=== PATIENT | female | born 1970 | race Caucasian/White ===

== ENCOUNTER 2017-08-23 19:43 | Emergency (ER) | payer OTHER ==
[~2017-08-23 19:43] MED LIST: ADVAI100I PO; DIAZ5 PO; MELO15 PO; NEBI2.5; SYNT50TA PO; WELL150T PO; [UNRECOGNIZED DRUG - CODE]
[2017-08-23 20:06] VITALS: BP_SYST 136; BP_DIAS 1; BP_DIAS 85; PULSE 85; RESP 20; TEMP 98.5
[2017-08-23] MEDS ORDERED: ADVA100A INH (21:01)
[2017-08-23] MEDS ORDERED: ACIP20TA19 PO (21:01)
[2017-08-23] MEDS ORDERED: BYST2.5T2 PO (21:01)
[2017-08-23] MEDS ORDERED: LEVO.05 PO (21:01)
[2017-08-23] MEDS ORDERED: KETOROLAC TROMETHAMINE 60 MG/2 ML (IM) VIAL IM ONE (21:30)
[2017-08-23] MEDS ORDERED: TETANUS/DIPHTHERIA TOXOID ADULT 0.5 ML VIAL IM ONE (21:30)
--- NOTE | 2017-08-23 21:39 | RADRPT ---
EXAM DATE/TIME: 08/23/2017 21:25 [facility] COMPARISON: No previous studies available for comparison. INDICATIONS : Pain in right wrist after falling this morning. MEDICAL HISTORY : None. SURGICAL HISTORY : None. ENCOUNTER: Initial ACUITY: 1 day PAIN SCORE: 5/10 LOCATION: Right wrist. FINDINGS: Two view examination of the right wrist demonstrates no soft tissue swelling, dislocation, or fractur e. The joint spaces are maintained. Bony mineralization is normal. CONCLUSION: Normal examination for a patient of this age. Rocco Fragoso MD on August 23, 2017 at 21:37 Board Certified Radiologist. This report was verified electronically.
--- NOTE | 2017-08-23 21:39 | RADRPT ---
EXAM DATE/TIME: 08/23/2017 21:25 [facility] COMPARISON: No previous studies available for comparison. INDICATIONS : Left foot pain after falling this morning. Pain in 5th metatarsal. MEDICAL HISTORY : None. SURGICAL HISTORY : None. ENCOUNTER: Initial ACUITY: 1 day PAIN SCORE: 5/10 LOCATION: Left foot FINDINGS: Two view examination of the left foot demonstrates no soft tissue swelling, dislocation, or fracture. The calcaneus is intact. Bony mineralization is normal. CONCLUSION: Normal examination for a patient of this age. Rocco Fragoso MD on August 23, 2017 at 21:36 Board Certified Radiologist. This report was verified electronically.
--- NOTE | 2017-08-23 21:40 | RADRPT ---
EXAM DATE/TIME: 08/23/2017 21:25 [facility] COMPARISON: No previous studies available for comparison. INDICATIONS : Pain in right hand after falling this morning. Pain in 1st metacarpal. MEDICAL HISTORY : None. SURGICAL HISTORY : None. ENCOUNTER: Initial ACUITY: 1 day PAIN SCORE: 7/10 LOCATION: Right hand. FINDINGS: Two view examination of the right hand demonstrates no soft tissue swelling, dislocation, or fracture . The joint spaces are maintained. Mild degenerative changes at the DIP joints. Bony mineralizatio n is normal. CONCLUSION: Mild degenerative changes of the DIP joints. No acute fracture or joint dislocation. Rocco Fragoso MD on August 23, 2017 at 21:37 Board Certified Radiologist. This report was verified electronically.
--- NOTE | 2017-08-23 21:52 | PD ---
HPI Chief Complaint: Fall Time Seen by Provider: 21:14 Travel History International Travel<30 days: No Contact w/Intl Traveler<30days: No Traveled to known affect area: No History of Present Illness HPI 46yo F with no significant PMH presents to the ED with right wrist, right hand and left foot pain s/p trip and fall today. Said she step on a little stone on sidewalk this morning and fell with outstretched right hand and right knee. Denies any head trauma, LOC, chest pain, sob, n/v, abdominal pain, focal weakness or numbness. Pt said she was able to ambulate after and has a scrape on right knee but it does not hurt. Unknown tetanus. Did not take any pain medication at home. PFSH Past Medical History Asthma: Yes Diminished Hearing: No GERD: Yes Hypertension: Yes Thyroid Disease: Yes (hypo) Tetanus Vaccination: > 5 Years Influenza Vaccination: Yes ?: Not Past Surgical History Other Surgery: Yes (breast lift) Social History Alcohol Use: Yes (occassional) Tobacco Use: No Substance Use: No Allergies-Medications (Allergen,Severity, Reaction): Coded Allergies: No Known Allergies (Unverified Adverse Reaction, Unknown, 08/23/17) Reported Meds & Prescriptions Reported Meds & Active Scripts Active Reported Aciphex (Rabeprazole Sodium) 20 Mg Tab 20 Mg PO DAILY Synthroid (Levothyroxine Sodium) 50 Mcg Tab 50 Mcg PO DAILY Advair Diskus Inh (Fluticasone-Salmeterol Inh) 100-50 Mcg/Blist Aer 1 Puff INH BID Rinse mouth after use. Bystolic (Nebivolol) 2.5 Mg Tab 2.5 Mg PO DAILY Review of Systems Except as stated in HPI: all other systems reviewed are Neg Physical Exam Narrative GENERAL: 46yo F in mild distress. SKIN: Focused skin assessment warm/dry. HEAD: Atraumatic. Normocephalic. EYES: Pupils equal and round. No scleral icterus. No injection or drainage. ENT: No nasal bleeding or discharge. Mucous membranes pink and moist. NECK: No midline cervical spine ttp. CARDIOVASCULAR: Regular rate and rhythm. No murmur appreciated. RESPIRATORY: No accessory muscle use. Clear to auscultation. Breath sounds equal bilaterally. GASTROINTESTINAL: Abdomen soft, non-tender, nondistended. MUSCULOSKELETAL: RUE: +TTP volar aspect of distal radius. +TTP thenar eminence. No scaphoid tenderness. Radial pulse 2+. Sensation intact. Right knee: +Abrasion. FROM right knee. Sensation intact. Left foot: +Abrasion base of fifth metatarsal with ttp. DP 2+. Sensation intact. FROM left ankle. NEUROLOGICAL: Awake and alert. No obvious cranial nerve deficits. Motor grossly within normal limits. Normal speech. PSYCHIATRIC: Appropriate mood and affect; insight and judgment normal. Data Data Last Documented VS Vital Signs Date Time Temp Pulse Resp B/P (MAP) Pulse Ox O2 Delivery O2 Flow Rate FiO2 08/23/17 20:06 98.5 85 20 136/85 (102) Orders Orders Foot, Limited (2vws) (08/23/17 ) Wrist, Limited (Ap&Lat) (08/23/17 ) Hand, Limited (2vws) (08/23/17 ) Tetanus/Diphtheria Tox Adult (Tetanus/Di (08/23/17 21:30) Ketorolac Inj (Toradol Inj) (08/23/17 21:30) MDM Medical Decision Making Medical Screen Exam Complete: Yes Emergency Medical Condition: Yes Differential Diagnosis Fracture vs. contusion Narrative Course 46yo F with right hand and wrist pain and left foot pain after mechanical fall today. Xray left foot negative. Xray right hand showed mild degenerative changes of DIP joints. No acute fracture or joint dislocation. Xray right wrist showed no acute fracture. Pt did not take any pain medication at home. Pt given toradol and tetanus. Pt reevaluated at bedside and pain has improved. No scaphoid ttp. Return precautions given. Diagnosis Primary Impression: Right wrist pain Patient Instructions: General Instructions Departure Forms: Tests/Procedures Additional Instructions: Please follow up with your primary care physician in 2-3 days. Return to the ED if symptoms worsen. Med/Other Pt SpecificInfo: Prescription(s) given Scripts Acetaminophen (Tylenol) 325 Mg Tab 650 MG PO Q6H Y for PAIN SCALE 1 TO 4, #20 TAB 0 Refills Prov: Pema Rubalcava 08/23/17 Disposition: 01 DISCHARGE HOME Condition: Stable Pema Rubalcava Aug 23, 2017 21:52
[2017-08-23 23:17] VITALS: RESP 18
[2017-08-23] MEDS ORDERED: TYLE325T PO (23:19)
[2017-08-23 23:26] VITALS: BP 119/85; TEMP 98.2
== END 2017-08-23 23:29 | disposition home or self-care (01) ==
LOC: PHEFT 19:43
DX: M25.531 Pain in right wrist (principal); J45.909 Unspecified asthma, uncomplicated; I10 Essential (primary) hypertension; K21.9 Gastro-esophageal reflux disease without esophagitis; W01.0XXA Fall on same level from slipping, tripping and stumbling without subsequent striking against object, initial encounter; Z23 Encounter for immunization
CPT/HCPCS: 73100; 73120; 73620; 90471; 90714; 96372; 99284; J1885